=== PATIENT | male | born 1955 | race Two or more races ===

== ENCOUNTER 2023-10-20 18:04 | Emergency (ER) | payer OTHER ==
[~2023-10-20] VITALS: Ht 198.1 cm; Wt 90.7 kg
[2023-10-20 19:00] LABS: HEMATOCRIT 40.5 % (39.0-48.0); HEMOGLOBIN 13.7 g/dL (13-16.00); MEAN CELL VOLUME 88.9 fL (80.0-100.00); MEAN CORPUSCULAR HEMOGLOBIN 30.1 pg (27.00-32.0); MEAN CORPUSCULAR HGB CONC 33.9 g/dl (32.0-36.0); PLATELET COUNT 220 K/uL (150-450); RED BLOOD COUNT 4.55 M/uL (4.00-6.00); RED CELL DISTRIBUTION WIDTH 13.8 % (11.5-14.5); URINE APPEARANCE Clear; URINE BILIRRUBIN Negative (NEGATIVE); URINE BLOOD Moderate; URINE COLOR Yellow; URINE GLUCOSE Negative (NEGATIVE); URINE LEUKOCYTE Large; URINE NITRATE Positive; URINE PROTEIN Negative (NEGATIVE); URINE UROBILINOGEN 0.2 E.U./dl
[2023-10-20 19:03] LABS: URINE BACTERIA 1102.4 uL (0.0-1933); URINE EPITHELIAL CELLS 6.8 uL (0.0-38.8); URINE RBC 119.4 uL (0.0-20.8); URINE WBC 189.2 uL (0.0-23.2)
[2023-10-20 19:21] LABS: INR 1.08; PARTIAL THROMBOPLASTIN TIME 29.1 SECONDS (22.0-34.0); PROTHROMBIN TIME 11.3 SECONDS (9.0-11.5)
[2023-10-20 19:25] LABS: ALBUMIN 3.9 gm/dL (3.4-5.0); BILIRUBIN TOTAL 0.94 mg/dL (0.3-1.2); CREATININE SERUM 2.16 mg/dL (0.70-1.30); GFR 30.74; GLOBULINA 3.5 G/DL (2.4-3.5); POTASSIUM 4.9 mEq/L (3.5-5.1); TOTAL PROTEIN 7.4 gm/dL (6.4-8.2)
== END 2023-10-21 06:20 | disposition home or self-care (01) ==
LOC: ER 18:04
PROVIDERS: General Practice
DX: N40.0 Benign prostatic hyperplasia without lower urinary tract symptoms (principal); R33.8 Other retention of urine